=== PATIENT | female | born 1990 | race Caucasian/White ===

== ENCOUNTER 2016-10-26 16:49 | Emergency (ER) | payer BC ==
[2016-10-26] MEDS ORDERED: Insulin REGULAR(*) 1 UNITS UNIT IV ONE (18:20)
[2016-10-26] MEDS: NS 0.9% 1000 ML* 4,000 ML IV ONE (18:35)
[2016-10-26 18:43] LABS: Hematocrit 42 % (35-47); Hemoglobin 14.4 g/dl (12.0-16.0); Mean Corpuscular HGB Conc 34 g/dl (31-36); Mean Corpuscular Hemoglobin 29 pg (27-31); Mean Corpuscular Volume 84 fL (80-97); Mean Platelet Volume 9 um3 (7.4-10.4); Red Blood Count 5.05 10^6/ul (4.0-5.4); Red Cell Distribution Width 14 % (10.5-15); White Blood Count 9.9 10^3/ul (3.5-10.8)
[2016-10-26 18:49] LABS: Urine Bacteria 1+ (Absent); Urine Bilirubin Negative (Negative); Urine Glucose 3+(>=500 mg/dL) (Negative); Urine Nitrite Negative (Negative)
[2016-10-26 18:54] LABS: ALT 28 U/L (7-52); AST 20 U/L (13-39); Alkaline Phosphatase 78 U/L (34-104); Anion Gap 11 mmol/L (2-11); BUN/Creatinine Ratio 19.8 (8-20); Blood Urea Nitrogen 17 mg/dL (6-24); C Reactive Protein 11.92 mg/L (< 5.00); CO2 Carbon Dioxide 24 mmol/L (22-32); Calcium 9.3 mg/dL (8.6-10.3); Chloride 93 mmol/L (101-111); Creatine Kinase 51 U/L (10-223); EGFR Non-African American 78.6 (>60); Globulin 3.3 g/dL (2-4); Magnesium 2.1 mg/dL (1.9-2.7); Potassium 3.9 mmol/L (3.5-5.0); Sodium 128 mmol/L (133-145); Total Protein 7.3 g/dL (6.4-8.9)
[2016-10-26 19:00] LABS: Glucose 616 mg/dL (70-100)
[2016-10-26 19:56] LABS: Venous Bicarbonate HCO3 22.8 mmol/L (24-28)
[2016-10-26] MEDS ORDERED: metFORMIN* 500 MG TAB PO ONE ×2 (20:15→21:07)
[2016-10-26 22:08] VITALS: BP 119/63
--- NOTE | 2016-10-26 22:24 | ED ---
Keaton Melo Alok, scribed for Arley Hurd MD on 10/26/16 at 1907 . HPI Diabetic - HPI Summary HPI Summary: 26 y/o female presents to the ED for hyperglycemia and diopia since today, prompting her visit the ED for diabetic work-up. Pt also notes numbness, tingling, and burning sensations in her feet bilaterally for the last few months as well as edema. Pt also adds increased urination, thirst, and decreased appetite with approximately 10 lbs of weight loss. Pt denies N/V/D, fever, chills, CP, or SOB. PMHx includes borderline DM and cardiomyopathy. - History Of Current Complaint Chief Complaint: EDGeneral Time Seen by Provider: 10/26/16 18:18 Hx Obtained From: Patient Onset/Duration: Gradual Onset, Lasting Days, Still Present Timing: Constant Severity Initially: Moderate Severity Currently: Moderate Character: Alert Aggravating: Nothing Alleviating: Nothing Associated Signs & Symptoms: Polydipsia, Polyuria, Weight Loss - Allergies/Home Medications Allergies/Adverse Reactions: Allergies Allergy/AdvReac Type Severity Reaction Status Date / Time No Known Allergies Allergy Verified 10/26/16 18:06 PMH/Surg Hx/FS Hx/Imm Hx Endocrine/Hematology History: Denies: Hx Diabetes - BORDERLINE Cardiovascular History: Reports: Other Cardiovascular Problems/Disorders - CARDIOMYOPATHY/TACHYCARDIA, CARDIAC CATH X 1 YR Denies: Hx Hypertension - LISINOPRIL, Hx Pacemaker/ICD Respiratory History: Reports: Hx Asthma History: Denies: Hx Renal Disease Sensory History: Denies: Hx Hearing Aid Psychiatric History: Denies: Hx Panic Disorder - Surgical History Surgery Procedure, Year, and Place: ; tubal ligation; varicose veins; heart cath; GB removed - Immunization History Date of Tetanus Vaccine: unknown Date of Influenza Vaccine: None Infectious Disease History: No Infectious Disease History: Denies: Traveled Outside the [place] in Last 30 Days - Family History Known Family History: Positive: Diabetes - Both parents, Grandparents - Social History Occupation: Employed Full-time Alcohol Use: None Substance Use Type: Reports: None Smoking Status (MU): Never Smoked Tobacco Review of Systems Negative: Fever Positive: Diplopia Negative: Chest Pain Negative: Shortness Of Breath Negative: Vomiting, Diarrhea, Nausea Positive: frequency Positive: Edema Positive: Numbness All Other Systems Reviewed And Are Negative: Yes Physical Exam - Summary Physical Exam Summary: The patient is well-nourished in no acute distress and in no acute pain. The skin is warm and dry and skin color reflects adequate perfusion. Decreased turgor. No cyanosis. HEENT: The head is normocephalic and atraumatic. The pupils are equal and reactive. The conjunctivae are clear and without drainage. Nares are patent and without drainage. Mouth reveals dry mucous membranes and the throat is without erythema and exudate. The external ears are intact. The ear canals are patent and without drainage. The tympanic membranes are intact. Neck is supple with full range of motion and non-tender. There are no carotid bruits. There is no neck vein distension. Respiratory: Patient is tachypneic. Chest is non-tender. Lungs are clear to auscultation and breath sounds are symmetrical and equal. No rales, rhonci, or wheezes. Cardiovascular: Hear is regular rate and rhythm. There is no murmur or rub auscultated. Lower extremity edema bilaterally. Pulses are symmetrical and equal. Abdomen: The abdomen is soft and non-tender. There are normal bowel sounds heard in all four quadrants and there is no organomegaly palpated. Musculoskeletal: There is no back pain noted. Extremities are non-tender with full range of motion. There is good capillary refill. Lower extremity edema bilaterally. Neurological: Patient is alert and oriented to person, place and time. The patient has symmetrical motor strength in all four extremities. Cranial nerves are grossly intact. Deep tendon reflexes are symmetrical and equal in all four extremities. Loss of proprial sensation. Decreased sensation feet. No keytones on breath. Psychiatric: The patient has an appropriate affect and does not exhibit any anxiety or depression. Triage Information Reviewed: Yes Vital Signs On Initial Exam: Initial Vitals Temp Pulse Resp BP Pulse Ox 98.3 F 113 20 156/95 100 10/26/16 17:01 10/26/16 17:01 10/26/16 17:01 10/26/16 17:01 10/26/16 17:01 Vital Signs Reviewed: Yes - Abdiaziz Coma Scale Coma Scale Total: 15 Diagnostics - Vital Signs Vital Signs Temp Pulse Resp BP Pulse Ox 10/26/16 18:03 101 147/78 98 10/26/16 18:00 96 97 10/26/16 17:59 98.4 F 101 16 136/82 99 10/26/16 17:11 107 97 10/26/16 17:09 136/82 10/26/16 17:01 98.3 F 113 20 156/95 100 - Laboratory Lab Results: Lab Results 10/26/16 10/26/16 10/26/16 Range/Units 17:56 18:20 18:31 WBC 9.9 (3.5-10.8) 10^3/ul RBC 5.05 (4.0-5.4) 10^6/ul Hgb 14.4 (12.0-16.0) g/dl Hct 42 (35-47) % MCV 84 (80-97) fL MCH 29 (27-31) pg MCHC 34 (31-36) g/dl RDW 14 (10.5-15) % Plt Count 227 (150-450) 10^3/ul MPV 9 (7.4-10.4) um3 Neut % (Auto) 55.7 (38-83) % Lymph % (Auto) 36.5 (25-47) % [place] % (Auto) 5.4 (1-9) % Eos % (Auto) 1.6 (0-6) % Baso % (Auto) 0.8 (0-2) % Absolute Neuts (auto) 5.5 (1.5-7.7) 10^3/ul Absolute Lymphs (auto) 3.6 (1.0-4.8) 10^3/ul Absolute Monos (auto) 0.5 (0-0.8) 10^3/ul Absolute Eos (auto) 0.2 (0-0.6) 10^3/ul Absolute Basos (auto) 0.1 (0-0.2) 10^3/ul Absolute Nucleated RBC 0.01 10^3/ul Nucleated RBC % 0.1 VBG pH (7.33-7.43) VBG pCO2 (41-51) mmHg VBG pO2 (35-45) mmHg VBG HCO3 (24-28) mmol/L VBG O2 Saturation (70-80) % VBG Base Excess (0-4) Sodium (133-145) mmol/L Potassium (3.5-5.0) mmol/L Chloride (101-111) mmol/L Carbon Dioxide (22-32) mmol/L Anion Gap (2-11) mmol/L BUN (6-24) mg/dL Creatinine (0.51-0.95) mg/dL Est GFR ( Amer) (>60) Est GFR (Non-Af Amer) (>60) BUN/Creatinine Ratio (8-20) Glucose (70-100) mg/dL POC Glucose (mg/dL) > 444 H* (74-106) mg/dL Lactic Acid (0.5-2.0) mmol/L Calcium (8.6-10.3) mg/dL Magnesium (1.9-2.7) mg/dL Total Bilirubin (0.2-1.0) mg/dL AST (13-39) U/L ALT (7-52) U/L Alkaline Phosphatase (34-104) U/L Total Creatine Kinase (10-223) U/L Troponin I (<0.04) ng/mL C-Reactive Protein (< 5.00) mg/L B-Natriuretic Peptide 14 ( - 100) pg/mL Total Protein (6.4-8.9) g/dL Albumin (3.2-5.2) g/dL Globulin (2-4) g/dL Albumin/Globulin Ratio (1-3) Beta HCG, Quant mIU/mL Urine Color Urine Appearance Urine pH (5-9) Ur Specific Rebecca (1.010-1.030) Urine Protein (Negative) Urine Ketones (Negative) Urine Blood (Negative) Urine Nitrate (Negative) Urine Bilirubin (Negative) Urine Urobilinogen (Negative) Ur Leukocyte Esterase (Negative) Urine WBC (Auto) (Absent) Urine RBC (Auto) (Absent) Ur Squamous Epith Cells (Absent) Urine Bacteria (Absent) Urine Glucose (Negative) 10/26/16 10/26/16 10/26/16 Range/Units 18:31 18:31 18:31 WBC (3.5-10.8) 10^3/ul RBC (4.0-5.4) 10^6/ul Hgb (12.0-16.0) g/dl Hct (35-47) % MCV (80-97) fL MCH (27-31) pg MCHC (31-36) g/dl RDW (10.5-15) % Plt Count (150-450) 10^3/ul MPV (7.4-10.4) um3 Neut % (Auto) (38-83) % Lymph % (Auto) (25-47) % [place] % (Auto) (1-9) % Eos % (Auto) (0-6) % Baso % (Auto) (0-2) % Absolute Neuts (auto) (1.5-7.7) 10^3/ul Absolute Lymphs (auto) (1.0-4.8) 10^3/ul Absolute Monos (auto) (0-0.8) 10^3/ul Absolute Eos (auto) (0-0.6) 10^3/ul Absolute Basos (auto) (0-0.2) 10^3/ul Absolute Nucleated RBC 10^3/ul Nucleated RBC % VBG pH (7.33-7.43) VBG pCO2 (41-51) mmHg VBG pO2 (35-45) mmHg VBG HCO3 (24-28) mmol/L VBG O2 Saturation (70-80) % VBG Base Excess (0-4) Sodium 128 L (133-145) mmol/L Potassium 3.9 (3.5-5.0) mmol/L Chloride 93 L (101-111) mmol/L Carbon Dioxide 24 (22-32) mmol/L Anion Gap 11 (2-11) mmol/L BUN 17 (6-24) mg/dL Creatinine 0.86 (0.51-0.95) mg/dL Est GFR ( Amer) 101.0 (>60) Est GFR (Non-Af Amer) 78.6 (>60) BUN/Creatinine Ratio 19.8 (8-20) Glucose 616 H* (70-100) mg/dL POC Glucose (mg/dL) (74-106) mg/dL Lactic Acid 2.0 (0.5-2.0) mmol/L Calcium 9.3 (8.6-10.3) mg/dL Magnesium 2.1 (1.9-2.7) mg/dL Total Bilirubin 1.10 H (0.2-1.0) mg/dL AST 20 (13-39) U/L ALT 28 (7-52) U/L Alkaline Phosphatase 78 (34-104) U/L Total Creatine Kinase 51 (10-223) U/L Troponin I 0.00 (<0.04) ng/mL C-Reactive Protein 11.92 H (< 5.00) mg/L B-Natriuretic Peptide ( - 100) pg/mL Total Protein 7.3 (6.4-8.9) g/dL Albumin 4.0 (3.2-5.2) g/dL Globulin 3.3 (2-4) g/dL Albumin/Globulin Ratio 1.2 (1-3) Beta HCG, Quant < 0.60 mIU/mL Urine Color Straw Urine Appearance Cloudy Urine pH 5.0 (5-9) Ur Specific Rebecca 1.030 (1.010-1.030) Urine Protein Negative (Negative) Urine Ketones Trace H (Negative) Urine Blood 2+ H (Negative) Urine Nitrate Negative (Negative) Urine Bilirubin Negative (Negative) Urine Urobilinogen Negative (Negative) Ur Leukocyte Esterase Negative (Negative) Urine WBC (Auto) Trace(0-5/hpf) (Absent) Urine RBC (Auto) 2+(6-10/hpf) H (Absent) Ur Squamous Epith Cells Present H (Absent) Urine Bacteria 1+ H (Absent) Urine Glucose 3+(>=500 mg/dl) H (Negative) 10/26/16 10/26/16 Range/Units 19:50 20:10 WBC (3.5-10.8) 10^3/ul RBC (4.0-5.4) 10^6/ul Hgb (12.0-16.0) g/dl Hct (35-47) % MCV (80-97) fL MCH (27-31) pg MCHC (31-36) g/dl RDW (10.5-15) % Plt Count (150-450) 10^3/ul MPV (7.4-10.4) um3 Neut % (Auto) (38-83) % Lymph % (Auto) (25-47) % [place] % (Auto) (1-9) % Eos % (Auto) (0-6) % Baso % (Auto) (0-2) % Absolute Neuts (auto) (1.5-7.7) 10^3/ul Absolute Lymphs (auto) (1.0-4.8) 10^3/ul Absolute Monos (auto) (0-0.8) 10^3/ul Absolute Eos (auto) (0-0.6) 10^3/ul Absolute Basos (auto) (0-0.2) 10^3/ul Absolute Nucleated RBC 10^3/ul Nucleated RBC % VBG pH 7.38 (7.33-7.43) VBG pCO2 38 L (41-51) mmHg VBG pO2 52 H (35-45) mmHg VBG HCO3 22.8 L (24-28) mmol/L VBG O2 Saturation 89.3 H (70-80) % VBG Base Excess -2.3 L (0-4) Sodium (133-145) mmol/L Potassium (3.5-5.0) mmol/L Chloride (101-111) mmol/L Carbon Dioxide (22-32) mmol/L Anion Gap (2-11) mmol/L BUN (6-24) mg/dL Creatinine (0.51-0.95) mg/dL Est GFR ( Amer) (>60) Est GFR (Non-Af Amer) (>60) BUN/Creatinine Ratio (8-20) Glucose (70-100) mg/dL POC Glucose (mg/dL) 394 H (74-106) mg/dL Lactic Acid (0.5-2.0) mmol/L Calcium (8.6-10.3) mg/dL Magnesium (1.9-2.7) mg/dL Total Bilirubin (0.2-1.0) mg/dL AST (13-39) U/L ALT (7-52) U/L Alkaline Phosphatase (34-104) U/L Total Creatine Kinase (10-223) U/L Troponin I (<0.04) ng/mL C-Reactive Protein (< 5.00) mg/L B-Natriuretic Peptide ( - 100) pg/mL Total Protein (6.4-8.9) g/dL Albumin (3.2-5.2) g/dL Globulin (2-4) g/dL Albumin/Globulin Ratio (1-3) Beta HCG, Quant mIU/mL Urine Color Urine Appearance Urine pH (5-9) Ur Specific Rebecca (1.010-1.030) Urine Protein (Negative) Urine Ketones (Negative) Urine Blood (Negative) Urine Nitrate (Negative) Urine Bilirubin (Negative) Urine Urobilinogen (Negative) Ur Leukocyte Esterase (Negative) Urine WBC (Auto) (Absent) Urine RBC (Auto) (Absent) Ur Squamous Epith Cells (Absent) Urine Bacteria (Absent) Urine Glucose (Negative) Result Diagrams: 10/26/16 18:31 10/26/16 18:31 Lab Statement: Any lab studies that have been ordered have been reviewed, and results considered in the medical decision making process. - EKG 1907 Cardiac Rate: Tachycardia - 109 bpm EKG Rhythm: Sinus Tachycardia EKG Interpretation: Non-Specific ST changes. No STEMI Re-Evaluation - Re-Evaluation First Eval Re-Evaluation Time: 20:07 Second Eval Re-Evaluation Time: 21:02 Diabetic Course/Dx - Course Course Of Treatment: Will go home on Metformin 500 mg po bid. pt has new onset of hyperglycemia. there was no evidence of DKA. pt c/o of burning in her feet and blurred vision. her symptoms have been present for a while. the inital glucose was 616. the repeat glucose after Regular insulin and IV hydration was 394. pt was ok going home and will follow up with PCP - Diagnoses Differential Dx: Diabetic Ketoacidosis, New Onset Diabetes, Pyelonephritis Provider Diagnoses: hyperglycemia new onset, Type II diabetes mellitus - Critical Care Time Critical Care Time: 30-74 min - 30 minutes Discharge - Discharge Plan Condition: Stable Disposition: HOME Prescriptions: metFORMIN* [Glucophage 500 MG TAB *] 500 mg PO BID #60 tab Patient Education Materials: Diabetes Mellitus Type 2 in Adults (ED), Diabetic Hyperglycemia (ED), Metformin (By mouth) Forms: *Work Release Referrals: Emily Owen SKI LIFT ATTENDANT [Primary Care Provider] - Additional Instructions: Please follow up with your primary care provider. The documentation as recorded by the Keaton monreal Alok accurately reflects the service I personally performed and the decisions made by me, Arley Hurd MD.
== END 2016-10-26 22:28 | disposition home or self-care (01) ==
LOC: ED 16:49
DX: R73.9 Hyperglycemia, unspecified (principal); E11.8 Type 2 diabetes mellitus with unspecified complications; R63.1 Polydipsia; R35.8 Other polyuria
CPT/HCPCS: 36415; 80053; 81003; 81015; 82550; 82803; 83036; 83605; 83735; 83880; 84484; 84702; 85025; 86140; 87086; 93005; 96360; 99283; A9270-GY

== ENCOUNTER 2016-12-06 12:36 | Emergency (ER) | payer BC ==
[2016-12-06 15:11] VITALS: BP 131/91
--- NOTE | 2016-12-06 17:05 | RAD ---
INDICATION: Swelling of the third metacarpal phalangeal joint COMPARISON: None. TECHNIQUE: 4 views of the right hand were obtained. FINDINGS: The adequately corticated bones are in normal alignment. No significant focal osseous abnormality or fracture is seen. Joint spaces appear maintained. IMPRESSION: Normal right hand radiograph. If the patient's symptoms persist, follow-up imaging is recommended.
--- NOTE | 2016-12-06 18:31 | UC ---
Keaton Melo Alok, scribed for Linh Tyler MD on 12/06/16 at 1559 . Hand/Wrist HPI - HPI Summary HPI Summary: 26F presents to [facility] with right hand swelling accompanied by numbness/tingling. Pt states that her swelling began last night, until subsiding and returning again today while at work. Pt states she cannot fully extend her finger tips on that hand. Pt denies pain. Pt denies recent bug bites or injury. PMHx includes DM. Pt states she types frequently at her work. Pt denies h/o carpal tunnel. Pt has NKDA. - History Of Current Complaint Chief Complaint: UCUpperExtremity Stated Complaint: SWOLLEN HAND AND TINGLES Hx Obtained From: Patient Hx Last Menstrual Period: 11/26/16 ?: No Onset/Duration: Gradual Onset, Lasting Hours, Still Present, Worse Since - Today at work Severity Initially: Moderate Severity Currently: Moderate Pain Intensity: 0 Pain Scale Used: 0-10 Numeric Character Of Pain: Stiffness Aggravating Factor(s): Extension Alleviating: Nothing Associated Signs And Symptoms: Positive: Swelling, Numbness/Tingling - Allergies/Home Medications Allergies/Adverse Reactions: Allergies Allergy/AdvReac Type Severity Reaction Status Date / Time No Known Allergies Allergy Verified 12/06/16 15:11 Home Medications: Home Medications Carvedilol TAB* [Coreg TAB*] 1.5 tab PO BEDTIME 12/06/16 [History Confirmed ] Carvedilol TAB* [Coreg TAB*] 12.75 mg PO BID 12/06/16 [History Confirmed ] Furosemide TAB* [Lasix TAB*] 20 mg PO DAILY 12/06/16 [History Confirmed 12/06/16 ] Gabapentin CAP(*) [Neurontin 300 CAP(*)] 300 mg PO TID 12/06/16 [History Confirmed 12/06/16] Insulin GLARGINE(*) [Lantus(*)] 32 unit SUBCUT DAILY 12/06/16 [History Confirmed 12/06/16] Potassium Chloride Microencaps [Potassium Chloride Cr] 20 meq PO DAILY 12/06/16 [History Confirmed 12/06/16] Simvastatin [Zocor 40 MG (NF)] 20 mg PO DAILY 12/06/16 [History Confirmed ] metFORMIN* [Glucophage 500 MG TAB *] 1,000 mg PO BID 12/06/16 [History Confirmed 12/06/16] PMH/Surg Hx/FS Hx/Imm Hx Endocrine History Of: Reports: Diabetes Denies: Thyroid Disease Cardiovascular History Of: Reports: Hypertension Denies: Cardiac Disorders, Pacemaker/ICD Respiratory History Of: Reports: Asthma Denies: COPD GI/ History Of: Denies: Ulcer, Renal Disease - Surgical History Surgical History: Yes Surgery Procedure, Year, and Place: ; tubal ligation; varicose veins; heart cath; GB removed - Family History Known Family History: Positive: Hypertension, Diabetes - Both parents, Grandparents, Other - [place] - Social History Occupation: Employed Full-time Alcohol Use: None Substance Use Type: None Smoking Status (MU): Never Smoked Tobacco Review of Systems Constitutional: Negative Skin: Other - right hand swelling/tingling/numbness Respiratory: Negative Cardiovascular: Negative Musculoskeletal: Decreased ROM - right hand fingers, Edema - right hand, Other: - right hand swelling/tingling/numbness Neurological: Numbness - right hand All Other Systems Reviewed And Are Negative: Yes Physical Exam Triage Information Reviewed: Yes Appearance: Well-Appearing, No Pain Distress, Well-Nourished Vital Signs: Initial Vital Signs Temp 97.7 F 12/06/16 15:04 Pulse 98 12/06/16 15:04 Resp 20 12/06/16 15:04 BP 131/91 12/06/16 15:04 Pulse Ox 98 12/06/16 15:04 elevated BP noted Vital Signs Reviewed: Yes Eyes: Positive: Conjunctiva Clear ENT: Positive: Normal ENT inspection, Hearing grossly normal. Negative: Muffled /hoarse voice Neck: Positive: Supple Respiratory: Positive: Lungs clear, Normal breath sounds, No respiratory distress Cardiovascular: Positive: RRR, No Murmur, Pulses Normal, Brisk Capillary Refill Abdomen Description: Positive: Nontender, No Organomegaly, Soft Bowel Sounds: Positive: Present Musculoskeletal: Positive: Edema @ - right hand MCP middle finger and index finger, no redness or red streak, Other: - Negative Tinel's and Phalen test Neurological: Positive: Alert, Muscle Tone Normal Psychological Exam: Normal Skin Exam: Normal Diagnostics - Radiology Hand XRAY Xray Interpretation: Positive (See Comments) - IMPRESSION: Normal right hand radiograph. If the patient's symptoms persist, follow-up imaging is recommended. Radiology Interpretation Completed By: Radiologist Re-Evaluation - Re-Evaluation First Eval Re-Evaluation Time: 17:16 Change: Unchanged Comment: Discussed XRAY results and will treat as infection. Hand/Wrist Course/Dx - Course Course Of Treatment: High blood pressure noted. Pt medications reviewed this visit. Pt presented with right hand swelling, numbness, and tingling. Pt denies pain. Hand XRAY within nml limits and will treat her hand as possible infection , particularly because she is diabetic and higher risk for infection. Will discharge home with antibiotics and instructions to return for new/worsening symptoms. - Differential Dx/Diagnosis Differential Diagnosis/HQI/PQRI: Carpal Tunnel Syndrome, Cellulitis, Infection, Sprain, Strain, Tenosynovitis Provider Diagnoses: elevated BP without dx of HTN. Cellulitis. Discharge - Discharge Plan Condition: Stable Disposition: HOME Prescriptions: Cephalexin CAP* [Keflex 500 CAP*] 500 mg PO QID #40 cap Patient Education Materials: Cellulitis (ED), RICE Therapy (ED) Forms: *Work Release Referrals: Emily Owen NP [Primary Care Provider] - Additional Instructions: Your xray did not show any abnormalities with the bones, no fracture. We are treating you for infection, cellulitis, which may be the cause of the swelling. The numbness and tingling should improve when the swelling decreases. RETURN TO URGENT CARE FOR ANY NEW OR WORSENING SYMPTOMS The documentation as recorded by the Keaton monreal Alok accurately reflects the service I personally performed and the decisions made by me, Linh Tyler MD.
== END 2016-12-06 17:22 | disposition home or self-care (01) ==
LOC: UCEAST 12:36
DX: R03.0 Elevated blood-pressure reading, without diagnosis of hypertension (principal); L03.113 Cellulitis of right upper limb; B96.89 Other specified bacterial agents as the cause of diseases classified elsewhere; E11.9 Type 2 diabetes mellitus without complications
CPT/HCPCS: 99212; G0463

== ENCOUNTER 2018-03-15 13:17 | Emergency (ER) | payer BC ==
--- NOTE | 2018-03-15 13:31 | ED ---
HPI Diabetic - HPI Summary HPI Summary: The pt is a 28 y/o female with a Mhx of DM and neuropathy presenting to [facility] c/ o blurred vision since 3 days ago. She described it as trying to see through a liquid. She went to [facility] urgent Care today where her glucose level was 133 mg/ dL. She reports that had elevated BG over 500mg/dL 2weeks ago. She notes a temporal WAGONER but denies SOB, CP, and weakness - History Of Current Complaint Time Seen by Provider: 03/15/18 13:24 Hx Obtained From: Patient Hx Last Menstrual Period: 11/26/16 Onset/Duration: Gradual Onset, Lasting Days Associated Signs & Symptoms: Negative - SOB, CP, numbness, and weakness - Allergies/Home Medications Allergies/Adverse Reactions: Allergies Allergy/AdvReac Type Severity Reaction Status Date / Time No Known Allergies Allergy Verified 03/15/18 14:07 PMH/Surg Hx/FS Hx/Imm Hx Previously Healthy: No Endocrine/Hematology History: Reports: Hx Diabetes Denies: Hx Thyroid Disease Cardiovascular History: Reports: Hx Hypertension, Other Cardiovascular Problems/ Disorders - CARDIOMYOPATHY/TACHYCARDIA, CARDIAC CATH Denies: Hx Pacemaker/ICD Respiratory History: Reports: Hx Asthma Denies: Hx Chronic Obstructive Pulmonary Disease (COPD) GI History: Denies: Hx Ulcer History: Denies: Hx Renal Disease Sensory History: Denies: Hx Hearing Aid Neurological History: Reports: Other Neuro Impairments/Disorders - Neuropathy Psychiatric History: Denies: Hx Panic Disorder - Surgical History Surgery Procedure, Year, and Place: ; tubal ligation; varicose veins; heart cath; GB removed - Immunization History Date of Tetanus Vaccine: unknown Date of Influenza Vaccine: None Infectious Disease History: Denies: Hx Clostridium Difficile, Hx Hepatitis, Hx Human Immunodeficiency Virus (HIV), Hx of Known/Suspected MRSA, Hx Shingles, Hx Tuberculosis, Hx Known/ Suspected VRE, Hx Known/Suspected VRSA, History Other Infectious Disease - Family History Known Family History: Positive: Hypertension, Diabetes - Both parents, Grandparents, Other - [place] - Social History Occupation: Employed Full-time Lives: With Family Alcohol Use: None Substance Use Type: Reports: None Smoking Status (MU): Never Smoked Tobacco Review of Systems Constitutional: Negative - Weakness Positive: Blurred Vision Negative: Chest Pain Negative: Shortness Of Breath Positive: Headache - Temporal , Numbness All Other Systems Reviewed And Are Negative: Yes Physical Exam - Summary Physical Exam Summary: Appearance: Well appearing, no pain distress Skin: warm, dry, reflects adequate perfusion Head/face: normal Eyes: EOMI, Pupils are 6mm and reactive to light ENT: normal Neck: supple, non-tender Respiratory: CTA, breath sounds present Cardiovascular: RRR, pulses symmetrical Abdomen: non-tender, soft Bowel: present Musculoskeletal: normal, strength/ROM intact Neuro: normal, sensory motor intact, A&Ox3 Triage Information Reviewed: Yes Vital Signs On Initial Exam: Initial Vital Signs Temp 98.6 F 03/15/18 13:59 Pulse 66 03/15/18 13:59 Resp 16 03/15/18 13:59 BP 112/64 03/15/18 13:59 Pulse Ox 97 03/15/18 13:59 Vital Signs Reviewed: Yes Diagnostics - Laboratory Result Diagrams: 03/15/18 14:01 03/15/18 14:01 Lab Statement: Any lab studies that have been ordered have been reviewed, and results considered in the medical decision making process. - Radiology CXR Radiology Interpretation Completed By: Radiologist - IMPRESSION: No active disease The ED physician reviewed this radiology report. - CT Brain CT CT Interpretation Completed By: Radiologist - IMPRESSION: NO ACUTE INTRACRANIAL FINDINGS The ED physician reviewed this radiology report. - EKG 13:43 Cardiac Rate: NL EKG Interpretation: Non-specific STT changes Diabetic Course/Dx - Course Course Of Treatment: A 28 year-old F with a MHx of DM and neuropathy presents to the ED with a CC of blurred vision since 3 days ago. She described it as trying to see through a liquid. She notes a temporal WAGONER but denies SOB, CP, and weakness. A physical exam revealed that pupils are 6mm and reactive to light. A CXR and brain CT are negative. An EKG reveals non-specific STT changes. The patient will be discharged with a final Dx of blurred vision. Dr matta consult done in er. d/w opthalmology and I referred the pt to Dr. Harini Pena MD (Commercial Management Accountant) today .The pt is agreeable with this plan. - Diagnoses Differential Dx: Diabetic Ketoacidosis, Other - blurring of vision/retinal detachment Provider Diagnoses: Blurred vision Discharge - Sign-Out/Discharge Documenting (check all that apply): Patient Departure - DC - Discharge Plan Condition: Stable Disposition: HOME Patient Education Materials: Blurred Vision (ED) Referrals: Emily Owen NP [Nurse Practitioner] - 3 Days Harini Pena MD [Medical Doctor] - As Soon As Possible Additional Instructions: Follow up with PCP in 3 days. Return to ED for any new or worsening symptoms - Billing Disposition and Condition Condition: STABLE Disposition: Home - Attestation Statements Document Initiated by Scribe: Yes Documenting Scribe: Rupali More Provider For Whom Terrence is Documenting (Include Credential): Dr. Mook Camilo MD Scribe Attestation: Rupali Melo scribed for Dr. Mook Camilo MD on 03/15/18 at 1645. Scribe Documentation Reviewed: Yes Provider Attestation: The documentation as recorded by the Rupali monreal accurately reflects the service I personally performed and the decisions made by me, Dr. Mook Camilo MD
[2018-03-15 14:08] LABS: ABS Basophils 0.1 10^3/ul (0-0.2); ABS Eosinophils 0.2 10^3/ul (0-0.6); ABS Lymphocytes 2.9 10^3/ul (1.0-4.8); ABS Monocytes 0.6 10^3/ul (0-0.8); ABS Neutrophils 4.4 10^3/ul (1.5-7.7); ABS Nucleated RBC 0 10^3/ul; Eosinophil % 2.4 % (0-6); Hematocrit 40 % (35-47); Hemoglobin 13.9 g/dl (12.0-16.0); Lymphocyte % 35.1 % (25-47); Mean Corpuscular HGB Conc 35 g/dl (31-36); Mean Corpuscular Hemoglobin 30 pg (27-31); Mean Corpuscular Volume 84 fL (80-97); Mean Platelet Volume 8.3 um3 (7.4-10.4); Nucleated Red Blood Cells % 0.3; Platelet Count 251 10^3/ul (150-450); Red Blood Count 4.71 10^6/ul (4.00-5.40); Red Cell Distribution Width 14 % (10.5-15); White Blood Count 8.2 10^3/ul (3.5-10.8)
--- NOTE | 2018-03-15 14:08 | RAD ---
INDICATION: Dizziness COMPARISON: CT brain June 19, 2013 TECHNIQUE: Noncontrast axial source images were acquired from the skull base to the vertex. FINDINGS: Ventricles/sulci: The ventricles and cisterns are normal in size and configuration for age. Brain parenchyma: There is no focal parenchymal finding, evidence of intracranial mass, or intracranial mass effect. Intracranial hemorrhage:None. Extra-axial spaces: There are no abnormal extra axial fluid collections or evidence of extra-axial mass. Calvarium: There is no calvarial fracture or other acute calvarial abnormality. There is frontal bone hyperostosis Scalp: There is no evidence of scalp or extracalvarial soft tissue abnormality. Paranasal sinuses/mastoid: The paranasal sinuses and mastoid air cells are clear. Other: None. IMPRESSION: NO ACUTE INTRACRANIAL FINDINGS
--- NOTE | 2018-03-15 14:09 | RAD ---
INDICATION: Dizziness COMPARISON: May 23, 2017 TECHNIQUE: An AP portable view obtained at 1354 hours is submitted. FINDINGS: Bones/Soft Tissues: There are no acute bony findings. Cardiomediastinal: The cardiomediastinal silhouette is normal. Lungs: There are no infiltrates. Pleura: There are no pleural effusions. Other: None IMPRESSION: NO ACTIVE DISEASE.
[2018-03-15 14:19] LABS: INR 0.9 (0.77-1.02)
[2018-03-15 16:50] VITALS: BP 104/54
--- NOTE | 2018-03-15 17:55 | CONS ---
NEUROLOGY CONSULTATION: DATE OF CONSULT: 03/15/18 LOCATION: She is in the emergency room. REFERRING PHYSICIAN: Dr. Camilo CHIEF COMPLAINT: Blurry vision. HISTORY OF PRESENT ILLNESS: Naz Armas is a 28-year-old woman with diabetes, who [facility] and transferred to the emergency room because of blurry vision. She had stopped all of her medications including her antihypertensives and diabetes medicines about 2 or 3 weeks ago. She says she ended up in the emergency room at [facility] with blood sugars over 500. She had blurry vision at that point in time. Her blood sugar was treated and was gradually brought down into the 200s at home over the last week or so. Her vision improved and appeared to get back to normal. In the last 3 days or so, her vision started getting blurry again. It is a global blurriness and makes it hard for her to read or see things and glasses do not seem to be helping. She is not aware of being worse in one eye or the other, but when I have her do a cover- uncover test, it is worse in the right eye, but also present in the left. She has a dull headache, but no eye pain or specifically retroorbital pain. She has no history of diabetic retinopathy she says. She is scheduled for an eye exam in about a month or so. She says her blood sugars at home have recently been running in the 200s. She resumed all of her medications that she was not on for at least a couple of weeks about a week-and- a-half to 2 weeks ago. She does not use any eye drops. PAST MEDICAL HISTORY: Notable for diabetes, which is not insulin dependent; obesity, cardiomyopathy, hypertension, history of migraines, asthma. PAST SURGICAL HISTORY: Tubal ligation. MEDICATIONS: 1. Metformin 500 mg 2 tabs p.o. b.i.d. 2. Simvastatin 20 mg p.o. daily. 3. Lisinopril 5 mg p.o. daily. 4. Gabapentin 300 mg p.o. t.i.d. 5. Lasix 20 mg p.o. daily. 6. Coreg 12.75 mg p.o. b.i.d. ALLERGIES: She does not have any drug allergies. PHYSICAL EXAM: She is overweight. Temperature 98.6, blood pressure 112/64, heart rate is in the 60s and regular. Respiratory rate is 18 and oxygen saturation is 96% on room air. Heart is in a regular rate and rhythm without murmurs. There are no cervical bruits. Neck is supple. Neurological Exam: Pupils are very large in a dim room light, at least 7 if not 8 mm. They do constrict to light down to about 4 to 5 mm. 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 Funduscopic exam reveals pale discs bilaterally. She is very photophobic and I did not get the best look. Visual acuity is light and movement in the right eye only. She is able to make out some details with the left eye. Facial musculature is symmetric. There is no ptosis. Facial sensation is symmetric. Speech is clear. Muscle tone and strength in the limbs is normal. There is no tremor. She is perfectly alert and an excellent detailed historian. Memory is intact and language is fluent. DIAGNOSTIC STUDIES/LAB DATA: Includes a normal chemistry profile today including a glucose of 120. Total bilirubin is slightly elevated at 1.6. CT scan of the brain was obtained and reviewed and it looks completely normal. IMPRESSION AND PLAN: Impression is that of bilateral optic nerve or retinal disease. I am not really sure as to the etiology and I think she needs to see an stretching machine tender frame today. I explained my recommendations to Dr. Camilo, who is going to call Ophthalmology on-call and determine what the next course of action will be. I do not think she is having an intracranial process, but rather an optic nerve or possibly ocular process. [id number]/[facility] #: [id number] [facility]PITALBlaine
== END 2018-03-15 16:00 | disposition home or self-care (01) ==
LOC: ED 13:17
DX: H53.8 Other visual disturbances (principal); E11.40 Type 2 diabetes mellitus with diabetic neuropathy, unspecified; R51 Headache; Z82.49 Family history of ischemic heart disease and other diseases of the circulatory system; Z83.3 Family history of diabetes mellitus; Z80.8 Family history of malignant neoplasm of other organs or systems
CPT/HCPCS: 36415; 70450; 71045; 80053; 83605; 84484; 84702; 85025; 85610; 85730; 93005; 99282